=== PATIENT | male | born 1950 | race Caucasian/White ===

== ENCOUNTER 2019-10-24 12:33 | Day surgery (SDC) | payer OTHER | END 2019-10-24 16:14 | disposition home or self-care (01) | LOC: OR 12:33 → TBA 12:40 | DX: H02.005 Unspecified entropion of left lower eyelid (principal); I10 Essential (primary) hypertension; Z98.890 Other specified postprocedural states; Z79.899 Other long term (current) drug therapy; Z85.828 Personal history of other malignant neoplasm of skin; Z88.8 Allergy status to other drugs, medicaments and biological substances; Z11.59 Encounter for screening for other viral diseases ==

== ENCOUNTER → 2020-03-09 | Outpatient (CLI) | payer OTHER ==
[~2020-03-09] MED LIST: LISINOPRIL5 MG PO
== END ==
LOC: LAB 13:06
PROVIDERS: ATTEND Ophthalmology
DX: Z01.812 Encounter for preprocedural laboratory examination (principal); Z20.828 Contact with and (suspected) exposure to other viral communicable diseases

== ENCOUNTER 2020-03-12 06:11 | Day surgery (SDC) | payer OTHER ==
[~2020-03-12] VITALS: Ht 180.3 cm; Wt 104.3 kg
[2020-03-12 07:30] VITALS: BP 124/78
--- NOTE | 2020-03-16 06:23 | O ---
[facility] [place] [address] OPERATIVE REPORT Name: LENA CHOUDHURY Room #: [facility].#: [id number] Admission: 03/12/20 Attend Phys: Juan Manuel Stanley MD Discharge: 03/12/20 Date of : 50 Report #: [id number] THIS REPORT FOR: cc: FAM - Family physician unknown FAM - Family physician unknown Juan Manuel Stanley MD ~ CC: [facility] unknown Abhijit Stanley DATE OF SERVICE: 03/12/2020 DRUG SAFETY SPECIALIST: None. PREOPERATIVE DIAGNOSIS: Unilateral right lower lid entropion. POSTOPERATIVE DIAGNOSIS: Unilateral right lower lid entropion. OPERATION PERFORMED: Unilateral right lower lid entropion repair. ANESTHESIA: Local with IV sedation. COMPLICATIONS: None. INDICATIONS FOR PROCEDURE: This patient has unilateral lower lid entropion with chronic irritation and discharge. The current procedure is being undertaken in order to improve the patient's level of comfort and visual function. Informed consent was obtained to include but not limited to the loss of vision, bleeding, infection, scarring, failure to improve the problem and need for further surgery. DESCRIPTION OF OPERATION: The patient was taken to the operating room, where 2% Xylocaine with epinephrine mixed with equal parts of 0.75% Marcaine with Wydase was administered transcutaneously and transconjunctivally to the lower lid and lateral canthal area. The patient was then prepped and draped in the usual sterile fashion. A China clamp was used to clamp the lateral canthus, following which a sharp canthotomy and cantholysis were performed. Hemostasis was achieved with a monopolar cautery, as it was throughout the case. A tarsal strip was prepared laterally, removing the lash-bearing portion of the redundant lid margin and the redundant tarsal plate. A transconjunctival dissection was then undertaken just inferior to the lower border of the tarsal plate. The lower lid retractors were disinserted from the inferior border of the tarsal plate. The lower lid retractors were then advanced and reattached to the [address] [address] OPERATIVE REPORT Name: LENA CHOUDHURY Room #: [facility] M.R.#: [id number] Admission: 03/12/20 Attend Phys: Juan Manuel Stanley MD Discharge: 03/12/20 Date of : 50 Report #: [id number] anterior surface of the tarsal plate with mattress 5-0 chromic sutures passed transconjunctivally and secured in the infraciliary margin. The tarsal strip was then secured laterally with 2 interrupted 5-0 Prolene sutures. The subcutaneous structures and the skin were then closed with multiple interrupted 6-0 plain gut sutures so the lateral canthal angle was sharply reformed. The wound was then cleaned and dressed with ophthalmic antibiotic ointment. The patient was then transported to the recovery area having tolerated the procedure well with no anesthetic or operative complications being noted. <ELECTRONICALLY SIGNED> By: Juan Manuel Stanley MD 03/16/20 0623 [id number] Juan Manuel Stanley MD /nt
== END 2020-03-12 08:00 | disposition home or self-care (01) ==
LOC: OR 06:11 → TBA 06:12 → OR 08:00
PROVIDERS: ATTEND Ophthalmology
DX: H02.002 Unspecified entropion of right lower eyelid (principal); I10 Essential (primary) hypertension; Z98.890 Other specified postprocedural states; Z85.828 Personal history of other malignant neoplasm of skin; Z79.899 Other long term (current) drug therapy; Z88.8 Allergy status to other drugs, medicaments and biological substances
CPT/HCPCS: 50010; 50101; 50386; 50398; 51636; 56527; 56531; 62110; 62850; 70005